=== PATIENT | female | born 1985 | race African-American/Black ===

== ENCOUNTER 2021-12-21 23:10 | Emergency (ER) | payer MEDICARE, OTHER ==
[~2021-12-21] VITALS: Ht 172.7 cm; Wt 68.0 kg
[2021-12-21] MEDS ORDERED: LISINOPRIL5 MG PO (23:28)
[2021-12-21] MEDS ORDERED: NOVOLOG FL100 UNIT/M SUBQ (23:29)
[2021-12-22 00:03] LABS: URINE BILIRUBIN NEGATIVE (Negative); URINE BLOOD NEGATIVE (Negative); URINE CLARITY CLEAR; URINE COLOR YELLOW; URINE GLUCOSE-RANDOM 2+ (Negative); URINE LEUKOCYTES-REFLEX TRACE (Negative); URINE NITRITE-REFLEX NEGATIVE (Negative); URINE PROTEIN NEGATIVE (Negative); URINE UROBILINOGEN 0.2 E.U./dl (0.2-1.0)
[2021-12-22 00:04] LABS: URINE KETONES 3+ (Negative)
[2021-12-22 00:09] LABS: ACETEST (KETONE CONFIRMATORY) Moderate (Negative)
[2021-12-22 00:47] LABS: CASTS None Seen /LPF (None Seen); SQUAMOUS >10 Many /LPF (0-3)
[2021-12-22] MEDS ORDERED: TRAMADOL 50 MG50 MG PO (00:49)
[2021-12-22] MEDS ORDERED: DOXYCYCLINE 10100 MG PO (00:49)
[2021-12-22 00:51] LABS: CRYSTALS None Seen /LPF (None Seen); URINE RBC None Seen /HPF (0-2); URINE WBC-REFLEX >25 Many /HPF (0-5)
[2021-12-22 01:00] VITALS: BP 137/64
== END 2021-12-22 01:00 | disposition home or self-care (01) ==
LOC: M.ERS 23:10
PROVIDERS: Emergency Medicine
DX: N89.8 Other specified noninflammatory disorders of vagina (principal); R10.2 Pelvic and perineal pain; I10 Essential (primary) hypertension; E11.9 Type 2 diabetes mellitus without complications; Z79.4 Long term (current) use of insulin; Z88.5 Allergy status to narcotic agent